=== PATIENT | male | born 1980 | race Hispanic/Latino ===

== ENCOUNTER 2022-12-13 15:56 | Emergency (ER) | payer BC ==
[~2022-12-13] VITALS: Ht 170.2 cm; Wt 72.6 kg
[2022-12-13] MEDS ORDERED: KETOROLAC 30MG VIAL (30MG/ML) ONE (16:12)
[2022-12-13 16:14] VITALS: BP 126/73
[2022-12-13] MEDS ORDERED: KETOROLAC 30MG VIAL (30MG/ML) IVP ONE (16:30)
[2022-12-13] MEDS ORDERED: 0.9%NACL 1000ML 1,000 ML IV ONE (16:30)
[2022-12-13 16:43] LABS: BASOPHILS % (AUTO) 0.5 % (0.0-5.0); EOSINOPHILS % (AUTO) 16.4 % (0.0-8.0); HEMATOCRIT 42.4 % (42-54); LYMPHOCYTES % (AUTO) 45.1 % (21.0-51.0); MEAN CORPUSCULAR HEMOGLOBIN 31.2 pg (27.0-33.0); MEAN CORPUSCULAR HGB CONC 32.5 g/dL (32.0-36.0); MEAN CORPUSCULAR VOLUME 95.9 fL (79-99); MONOCYTES % (AUTO) 5.1 % (3.0-13.0); NEUTROPHILS % (AUTO) 32.8 % (40.0-77.0); PLATELET COUNT (AUTO) 378 K/uL (130-400); RED BLOOD CELL COUNT(AUTO) 4.42 MIL/uL (4.50-6.20); RED CELL DISTRIBUTION WIDTH 14.5 % (11.0-15.5); WHITE BLOOD COUNT (AUTO) 7.6 K/uL (4.8-10.8)
[2022-12-13] MEDS ORDERED: MORPHINE 2 MG SYG ONE (16:47)
[2022-12-13] MEDS ORDERED: ONDANSETRON 4MG INJ ONE (16:47)
[2022-12-13 16:53] LABS: CREATININE 1.1 mg/dL (0.5-1.5)
[2022-12-13 16:58] LABS: ALBUMIN 3.9 g/dL (3.5-5.0); TOTAL PROTEIN, SERUM 6.8 g/dL (6.0-8.3)
[2022-12-13] MEDS ORDERED: MAG/ALUM/SIMETH 30 ML UDCUP PO ONE (17:00)
[2022-12-13] MEDS ORDERED: LIDOCAINE HCL 2% VISCOUS 15 ML UDCUP PO ONE (17:00)
[2022-12-13] MEDS ORDERED: MORPHINE 2 MG SYG IVP ONE (17:00)
[2022-12-13] MEDS ORDERED: ONDANSETRON 4MG INJ IVP ONE (17:00)
[2022-12-13] MEDS ORDERED: KETO10 PO (17:46)
[2022-12-13 17:51] LABS: APPEARANCE,URINE CLEAR (CLEAR); BILIRUBIN,URINE NEGATIVE (NEGATIVE); COLOR,URINE LIGHT-YELLOW (YELLOW); GLUCOSE, URINE (UA) NEGATIVE (NEGATIVE); KETONES,URINE NEGATIVE (NEGATIVE); LEUKOCYTE ESTERASE ,URINE NEGATIVE Leu/uL (NEGATIVE); NITRATE,URINE NEGATIVE (NEGATIVE); OCCULT BLOOD,URINE LARGE (NEGATIVE); PH,URINE 5.5 (5.0-8.0); PROTEIN,URINE 20 mg/dL (NEGATIVE); UROBILINOGEN,URINE 0.2 mg/dL (0.2-1.0)
[2022-12-13 17:58] LABS: AMPHET/METH SCREEN,URINE NEGATIVE (NEGATIVE); BARBITURATE SCREEN, URINE NEGATIVE (NEGATIVE); BENZODIAZEPINES SCREEN,URINE NEGATIVE (NEGATIVE); CANNABINOID SCREEN,URINE POSITIVE (NEGATIVE); COCAINE SCREEN,URINE POSITIVE (NEGATIVE); OPIATE SCREEN,URINE NEGATIVE (NEGATIVE); PHENCYCLIDINE SCREEN,URINE NEGATIVE (NEGATIVE)
[2022-12-13 18:14] LABS: BACTERIA,URINE RARE /HPF (None Seen); CALCIUM OXALATE CRYSTALS,UR FEW /LPF (None Seen); MUCUS,URINE MOD LPF (None Seen); SQUAMOUS EPITHELIAL CELL,UR RARE /HPF (0-2)
== END 2022-12-13 18:14 | disposition home or self-care (01) ==
LOC: EDH 15:56
DX: N20.0 Calculus of kidney (principal); F14.10 Cocaine abuse, uncomplicated; K21.9 Gastro-esophageal reflux disease without esophagitis; F17.200 Nicotine dependence, unspecified, uncomplicated; Z88.8 Allergy status to other drugs, medicaments and biological substances; Z79.899 Other long term (current) drug therapy
CPT/HCPCS: 99284; 74176; 96374; 96375; 96361 ×2; 82550; 84484; 80053; 80305; 85025; 82948; 36415; 93005; 81001; J7030; J2405; J1885

== ENCOUNTER → 2023-05-02 | Outpatient (CLI) | payer BC ==
[~2023-05-02] MED LIST: KETO10 PO
== END | disposition home or self-care (01) ==
LOC: RAH 15:18
PROVIDERS: ATTEND Internal Medicine
DX: N20.0 Calculus of kidney (principal); N23 Unspecified renal colic
CPT/HCPCS: 74176

== ENCOUNTER → 2023-09-26 | Outpatient (CLI) | payer BC | END | disposition home or self-care (01) | LOC: RAH 10:11 | PROVIDERS: ATTEND Internal Medicine | DX: M54.16 Radiculopathy, lumbar region (principal); G95.9 Disease of spinal cord, unspecified; M54.50 Low back pain, unspecified | CPT/HCPCS: 72100 ==